=== PATIENT | male | born 1935 | race Caucasian/White ===

== ENCOUNTER 2019-02-22 08:51 | Day surgery (SDC) | payer MEDICARE, OTHER, SELFPAY ==
[2019-01-16 13:48] VITALS: BMI 27.8
--- NOTE | 2019-01-17 03:42 | HP_ITS ---
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 [Ecotrin] 81 mg PO DAILY@0800 11/26/16 [History Confirmed 01/16/19] Folic Acid/Vitamin B Comp W-C [Nephrocaps, Renaphro] 1 cap PO DAILY #30 cap 12/04/16 [Rx Confirmed 01/16/19] amlodipine 5 mg tablet 5 mg PO DAILY 01/16/19 [History Confirmed 01/16/19] atorvastatin 40 mg tablet 40 mg PO DAILY 01/16/19 [History Confirmed 01/16/19] clopidogrel 75 mg tablet 75 mg PO DAILY 01/16/19 [History Confirmed 01/16/19] ferric citrate 210 mg iron tablet 210 mg PO TID 01/16/19 [History Confirmed 01/16/19] [facility] Medical History (Updated 01/16/19 @ 13:52 by Rachel Weston) Anemia (Acute) Anxiety (Acute) History of heart attack (Acute) Hypertension (Chronic) GERD (gastroesophageal reflux disease) (Acute) Hemorrhoids (Acute) Afib (Acute) Arthritis (Acute) CKD (chronic kidney disease) stage V requiring chronic dialysis (Acute) CKD (chronic kidney disease) (Chronic) Surgical History (Updated 01/16/19 @ 13:51 by Rachel Weston) Hx of heart artery stent (Acute) Hx of hernia repair (Acute) History of Mohs micrographic surgery for skin cancer (Acute) Hx of total knee arthroplasty (Acute) Hx of cataract surgery (Acute) Hx of arteriovenostomy for renal dialysis (Acute) Family History Mother Asthma Diabetes Thyroid disorder Father Heart disease Hypertension Social History (Updated 01/17/19 @ 15:42 by Amberly To PA-C) Smoking Status: Former smoker second hand exposure: No alcohol intake: never substance use type: does not use caffeine: Yes what type of physical activity do you participate in: other details: cardiac rehab frequency: 3-4 times per week HPI HPI HPI: YAMILET WILKS, is a 83 M who presents to the office today for HPI HPI Surgical H&P: Yes HPI: YAMILET WILKS, is a 83 M who presents to the office today for post-procedural bleeding. Patient notes for the last several weeks he has had post treatment bleeding for sometimes 18 hours after treatment completed. Patient notes he is able to full complete his treatment. He notes they stopped giving him Heparin prior to treatment which has helped with the oozing following treatment. He does note a very slow ooze and therefore has to leave the bandages on until the following evening. Patient's last intervention was on 03/21/2017. A Left upper extremity fistulogram with 7 x 2 conquest angioplasty was performed. Findings included 70% stenosis of the mid fistula was found. Patient denies pain at the fistula site. He dialyzes on M,W, F. Dr. Lincoln is his senior environmental consultant. Patient also notes recently having a cardiac stent placed in September. 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 ROS General General: Yes fatigue; no weight change, appetite, colon cancer, breast cancer or weakness HEENT HEENT: No difficulty swallowing, eye injury, eye surgery, swollen glands or hoarseness Endo Endocrine: No thyroid disease, diabetes mellitus, thyroid cancer, Hair loss, heat intolerance or cold intolerance Skin Skin: Yes changing moles; no rash Musc Musculoskeletal: Yes arthritis; no back problems, rheumatoid arthritis, gout or joint pain Cardio Cardiovascular: Yes murmur, heart disease, high blood pressure, heart attack and heart stent; no pacemaker, atrial fibrillation, palpitations, shortness of breat with exertion or chest pain Psych Psychiatric: Yes anxiety; no depression or hearing voices Resp Respiratory: No shortness of breath, No sleep apnea, Yes cough, No COPD, No asthma, No emphysema, No wheezing Gastro Gastrointestinal: No abdominal pain, No nausea or vomiting, No diarrhea, No constipation, No blood in stool, Yes acid reflux, Yes hemorrhoids, No ulcers, No gallbladder problem, No black,tarry stools Tanmay Hematologic: Yes blood thinners, No blood disorders, No bleeding, Yes anemia, No blood clots Neuro Neurologic: No system reviewed and no additional complaints, except as docu, No as per HPI, No abnormal walking, No abnormal hearing, No abnormal movements, No abnormal speech, No behavioral changes, No burning sensations, No confusion, No seizure-like activity, No unsteadiness, No dizziness, No localized weakness, No frequent falls, No headache(s), No lack of coordination, No loss of vision, No memory loss, No numbness, No other visual disturbances, No radiating pain, No restless legs, No sensory deficit, No fainting, No tingling, No tremor(s), No weakness, No other Exam Const General: cooperative, healthy appearing, comfortable, no acute distress HENNY Head: normal to inspection Eyes General: appearance normal, both eyes and all related structures Neck Neck: normal visual inspection Neck mass: No Resp Effort & Inspection: normal respiratory effort Cardio Rate: regular rate Rhythm: regular rhythm Heart Sounds: murmur GI Inspection: normal to inspection Palpation: soft Auscultation: normal bowel sounds Skin Other: left upper extremity AV fistula- good pulse, diminished bruit and thrill superior to the top button hole. Neuro General: no focal motor deficits, CN's II-XI intact bilaterally Extrem General: normal to inspection Psych Appearance: grossly normal Affect: normal affect Assessment & Plan Problems 1. Problem with dialysis access, initial encounter T82.396X Plan Dr. Reyes will plan to perform a left upper extremity fistulogram with possible intervention. Procedure details, risks and benefits have been explained to the patient. Patient has had the opportunity to ask and have questions answered. Patient verbally understands and agrees with the plan. Patient to continue on his Plavix. If is of note, Dr. Reyes mentioned on the last fistulogram to possibly consider retrograde access more proximally in the upper arm and to consider an 8 x 2 balloon Coding Level of Care Code Off vis,est,level 4 Diagnoses Problem with dialysis access, initial encounter T82.898A ??Encounter type: initial encounter 01/17/19 1542 <Electronically signed by Amberly keyes PA-C> Date _ Amberly To PA-C I have re-examined the patient. There are no clinical changes since date of exam.
--- NOTE | 2019-02-12 11:11 | EKG12_ITS ---
Test Reason : PRE-OP Blood Pressure : / mmHG Vent. Rate : 081 BPM Atrial Rate : 085 BPM P-R Int : 000 ms QRS Dur : 088 ms QT Int : 380 ms P-R-T Axes : 000 001 074 degrees QTc Int : 441 ms Atrial fibrillation Nonspecific T wave abnormality , probably digitalis effect Abnormal ECG Confirmed by ESTELLA HARTMAN, MARIA ESTHER ([id number]), makeup editor MÓNICA DON ([id number]) on 02/13/2019 11:41:51 AM Referred By: Nael Reyes Confirmed By:MARIA ESTHER SORIA MD
[2019-02-12 11:38] LABS: Hematocrit 41.9 % (40-54); Hemoglobin 12.5 g/dL (13.0-16.5); Mean Corp Hgb Conc 29.8 g/dL (32-36); Mean Corpuscular Hgb 30.8 pg (27.0-32.0); Mean Corpuscular Volume 103.2 fL (80-94); Mean Platelet Vol. 11.3 fl (6.2-12.0); POSITIVE MORPHOLOGY YES; Platelet Count 204 K/mm3 (150-450); RBC Distribution Width CV 18.3 % (11.6-14.6); RBC Distribution Width SD 67.8 fl (35.1-43.9); Red Blood Count 4.06 M/mm3 (4.6-6.2); White Blood Count 8.7 K/mm3 (4.4-11.0)
[2019-02-12 11:42] LABS: Scan Indicated on CBC? Y/N YES- FLAGS NOTED
[2019-02-12 12:16] LABS: Anion Gap 9 (5-15); BUN 57 mg/dL (7-18); BUN/Creat Ratio 5.7 RATIO (10-20); Calcium,Total 8.1 mg/dL (8.5-10.1); Chloride 107 mmol/L (98-107); Creatinine, Serum 9.94 mg/dL (0.70-1.30); EST Glomerular Filtration Rate 5 mL/min (>60); Est Glom Filt Rate - Afr Amer 7 mL/min (>60); Glucose 116 mg/dL (74-106); Potassium 4.3 mmol/L (3.5-5.1); Sodium Level 141 mmol/L (136-145)
[2019-02-22 08:58] VITALS: BMI 28.5
--- NOTE | 2019-02-22 09:54 | PCM.HP.BLA ---
Problem List (1) CKD (chronic kidney disease) stage V requiring chronic dialysis Status: Acute History and Physical Date of Admission: 02/22/19 [facility] Medical Records Department [address] [place] [address] History and Physical MR#: [id number] Acct: [id number] Name: YAMILET WILKS Rep #: [id number] : 1935 83 From: Amberly To PA-C PCP: Tl Dc MD Status: PRE SDC Location: [facility] Intake Vital Signs 02/22/19 Body Mass Index (BMI) 27.8 02/22/19 Height 5 ft 6 in 02/22/19 Weight: 177 lb 02/22/19 Body Mass Index (BMI) 28.5 02/22/19 Blood Pressure 157/74 H 02/22/19 Blood Pressure Location Rt brachial 02/22/19 Respiratory Rate 16 02/22/19 Pulse Rate 58 L 02/22/19 Pulse Source Monitor 02/22/19 Temperature 98.2 F 02/22/19 Pulse Ox 100 02/22/19 Oxygen Delivery Method room air Intake Visit Reasons: Check Fistula 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 [Ecotrin] 81 mg PO DAILY@0800 11/26/16 [History Confirmed 01/16/19] Folic Acid/Vitamin B Comp W-C [Nephrocaps, Renaphro] 1 cap PO DAILY #30 cap 12/04/16 [Rx Confirmed 01/16/19] amlodipine 5 mg tablet 5 mg PO DAILY 01/16/19 [History Confirmed 01/16/19] atorvastatin 40 mg tablet 40 mg PO DAILY 01/16/19 [History Confirmed 01/16/19] clopidogrel 75 mg tablet 75 mg PO DAILY 01/16/19 [History Confirmed 01/16/19] ferric citrate 210 mg iron tablet 210 mg PO TID 01/16/19 [History Confirmed 01/16/19] PFSH Medical History Anemia (Acute) Anxiety (Acute) History of heart attack (Acute) Hypertension (Chronic) GERD (gastroesophageal reflux disease) (Acute) Hemorrhoids (Acute) Afib (Acute) Arthritis (Acute) CKD (chronic kidney disease) stage V requiring chronic dialysis (Acute) CKD (chronic kidney disease) (Chronic) Surgical History Hx of heart artery stent (Acute) Hx of hernia repair (Acute) History of Mohs micrographic surgery for skin cancer (Acute) Hx of total knee arthroplasty (Acute) Hx of cataract surgery (Acute) Hx of arteriovenostomy for renal dialysis (Acute) Family History Mother Asthma Diabetes Thyroid disorder Father Heart disease Hypertension Social History Smoking Status: Former smoker second hand exposure: No alcohol intake: never substance use type: does not use caffeine: Yes what type of physical activity do you participate in: other details: cardiac rehab frequency: 3-4 times per week HPI HPI Surgical H&P: Yes HPI: Patient is an 83 y/o M I am following for chronic renal failure. He presents for an update history and physical for an upcoming surgical procedure. Patient denies recent hospitalizations or illnesses. He is maintained on Plavix which he has continued. Patient denies any previous complications with previous fistulogram. Patient's previous history: YAMILET WILKS, is a 83 M who presents to the office today for post-procedural bleeding. Patient notes for the last several weeks he has had post treatment bleeding for sometimes 18 hours after treatment completed. Patient notes he is able to full complete his treatment. He notes they stopped giving him Heparin prior to treatment which has helped with the oozing following treatment. He does note a very slow ooze and therefore has to leave the bandages on until the following evening. Patient's last intervention was on 03/21/2017. A Left upper extremity fistulogram with 7 x 2 conquest angioplasty was performed. Findings included 70% stenosis of the mid fistula was found. Patient denies pain at the fistula site. He dialyzes on M,W, F. Dr. Lincoln is his rabbler. Patient also notes recently having a cardiac stent placed in September. Dr. Mahoney is his reimbursement consultant. ROS General General: Yes fatigue; no weight change, appetite, colon cancer, breast cancer or weakness HEENT HEENT: No difficulty swallowing, eye injury, eye surgery, swollen glands or hoarseness Endo Endocrine: No thyroid disease, diabetes mellitus, thyroid cancer, Hair loss, heat intolerance or cold intolerance Skin Skin: Yes changing moles; no rash Musc Musculoskeletal: Yes arthritis; no back problems, rheumatoid arthritis, gout or joint pain Cardio Cardiovascular: Yes murmur, heart disease, high blood pressure, heart attack and heart stent; no pacemaker, atrial fibrillation, palpitations, shortness of breat with exertion or chest pain Psych Psychiatric: Yes anxiety; no depression or hearing voices Resp Respiratory: No shortness of breath, No sleep apnea, Yes cough, No COPD, No asthma, No emphysema, No wheezing Gastro Gastrointestinal: No abdominal pain, No nausea or vomiting, No diarrhea, No constipation, No blood in stool, Yes acid reflux, Yes hemorrhoids, No ulcers, No gallbladder problem, No black,tarry stools Tanmay Hematologic: Yes blood thinners, No blood disorders, No bleeding, Yes anemia, No blood clots Neuro Neurologic: No system reviewed and no additional complaints, except as docu, No as per HPI, No abnormal walking, No abnormal hearing, No abnormal movements, No abnormal speech, No behavioral changes, No burning sensations, No confusion, No seizure-like activity, No unsteadiness, No dizziness, No localized weakness, No frequent falls, No headache(s), No lack of coordination, No loss of vision, No memory loss, No numbness, No other visual disturbances, No radiating pain, No restless legs, No sensory deficit, No fainting, No tingling, No tremor(s), No weakness, No other Exam Const General: cooperative, healthy appearing, comfortable, no acute distress [facility] Head: normal to inspection Eyes General: appearance normal, both eyes and all related structures Neck Neck: normal visual inspection Neck mass: No Resp Effort & Inspection: normal respiratory effort Cardio Rate: regular rate Rhythm: regular rhythm Heart Sounds: murmur GI Inspection: normal to inspection Palpation: soft Auscultation: normal bowel sounds Skin Other: left upper extremity AV fistula- good pulse, diminished bruit and thrill superior to the top button hole. Neuro General: no focal motor deficits, CN's II-XI intact bilaterally Extrem General: normal to inspection Psych Appearance: grossly normal Affect: normal affect Assessment & Plan Problems 1. Problem with dialysis access, initial encounter T82.958A Plan Dr. Reyes will plan to perform a left upper extremity fistulogram with possible intervention. Procedure details, risks and benefits have been explained to the patient. Patient has had the opportunity to ask and have questions answered. Patient verbally understands and agrees with the plan. Patient to continue on his Plavix. If is of note, Dr. Reyes mentioned on the last fistulogram to possibly consider retrograde access more proximally in the upper arm and to consider an 8 x 2 balloon. Code Visit Inpatient E&M: 38691 Subs Hosp L1 - No charge
--- NOTE | 2019-02-22 11:41 | OP.PCM_ITS ---
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 84-year-old gentleman was taken to the special procedures lab was placed supine on the table. Versed 1 mg was given as intravenous sedation the left upper extremity was sterilely prepped and draped. Ultrasound was used to identify the transposed basilic vein closer to the brachial artery anastomosis. Under ultrasound guidance 2% lidocaine was instilled. Micropuncture needle inserted. Micropuncture wire inserted. 6 Hungarian short sheath dilator was inserted. Using Isovue contrast fistulogram was taken of the left upper extremity demonstrating mild aneurysmal change of the more proximal portion of the fistula and then just distal to that there is a 3 cm long area of high-grade 85% stenosis. There is then good central venous outflow. An 035 angled Glidewire was placed. An 8 x 20 m [employer]Quest balloon was inserted and after manipulating the ConQuest balloon was able to finally position it to where I could get a center position on the area of high-grade stenosis the balloon was insufflated up to 30 ernst of pressure. 2 distinct separate positionings were performed. Completion fistulogram demonstrated resolution of the high-grade stenosis. While the balloon was up I did a retrograde view as well. There were no apparent complications the balloon was removed U suture of 4-0 nylon was placed with good hemostasis and there was resumption of a palpable thrill. The left upper extremity fistula gram demonstrates a transposed basilic vein to brachial artery AV fistula. 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 The remainder of the more distal upper arm fistula demonstrates excellent venous outflow. There is widely patent arterial anastomosis and widely patent inflow to the fistula. Subsequent to the angioplasty there is complete resolution of the area of high-grade venous stenosis. Specimens none. Drains none. Blood loss minimal. Nael Reyes M.D., F.A.C.S. Type of Anesthesia:: IV Sedation, Local
== END 2019-02-22 12:45 | disposition home or self-care (01) ==
LOC: CLSP 08:52
PROVIDERS: Family Provider Family Medicine; PCP Family Medicine; Referring Provider Surgery; Visit Provider Surgery
DX: T82.858A Stenosis of other vascular prosthetic devices, implants and grafts, initial encounter (principal); I12.9 Hypertensive chronic kidney disease with stage 1 through stage 4 chronic kidney disease, or unspecified chronic kidney disease; N18.3 Chronic kidney disease, stage 3 (moderate); Z99.2 Dependence on renal dialysis; D64.9 Anemia, unspecified; I25.2 Old myocardial infarction; K21.9 Gastro-esophageal reflux disease without esophagitis; I48.91 Unspecified atrial fibrillation; M19.90 Unspecified osteoarthritis, unspecified site; Z95.5 Presence of coronary angioplasty implant and graft; Z79.82 Long term (current) use of aspirin; Z79.02 Long term (current) use of antithrombotics/antiplatelets; Z79.899 Other long term (current) drug therapy; Z87.891 Personal history of nicotine dependence
CPT/HCPCS: 36415; 36902; 76937; 80048; 85027; 93005; 99152; 99153; Q9967; A4216; C1725; C1769

== ENCOUNTER → 2020-01-17 09:41 | Outpatient (CLI) | payer MEDICARE, OTHER, SELFPAY ==
[2020-01-17 09:10] VITALS: BMI 29.0
[2020-01-17 10:18] LABS: Absolute Lymphocyte Count 1.39 X10^3/uL (0.83-4.51); Absolute Neutrophil Count 4.1 X10^3/uL (2.0-7.7); Basophil# 0.06 X10^3/uL; Basophil% 0.7 % (0-1); Eosinophil# 1.95 X10^3/uL; Eosinophils% 23.5 % (0-5); Hematocrit 33.6 % (40-54); Hemoglobin 10.4 g/dL (13.0-16.5); Lymphocyte # 1.39 X10^3/ul (4.0); Lymphocyte % 16.7 % (19-41); Mean Corpuscular Hgb 31.2 pg (27.0-32.0); Mean Corpuscular Volume 100.9 fL (80-94); Mean Platelet Vol. 11.5 fl (6.2-12.0); Monocyte# 0.76 X10^3/uL; Monocyte% 9.2 % (0-10); NRBC Flagged by Analyzer 0 % (0-5); Neutrophil # 4.12 X10^3/uL (2.7-7.7); Neutrophil % 49.7 % (47-70); Platelet Count 142 K/mm3 (150-450); RBC Distribution Width CV 14.7 % (11.6-14.6); RBC Distribution Width SD 54.3 fl (35.1-43.9); Red Blood Count 3.33 M/mm3 (4.6-6.2); White Blood Count 8.3 K/mm3 (4.4-11.0)
[2020-01-17 10:35] LABS: Anion Gap 6 (5-15); BUN 29 mg/dL (7-18); BUN/Creat Ratio 4.1 RATIO (10-20); Calcium,Total 7.7 mg/dL (8.5-10.1); Chloride 105 mmol/L (98-107); Creatinine, Serum 7.01 mg/dL (0.70-1.30); EST Glomerular Filtration Rate 8 mL/min (>60); Est Glom Filt Rate - Afr Amer 10 mL/min (>60); Glucose 96 mg/dL (74-106); Potassium 3.8 mmol/L (3.5-5.1); Sodium Level 138 mmol/L (136-145)
== END ==
PROVIDERS: PCP Family Medicine; Referring Provider Surgery; Visit Provider Surgery
DX: T82.898A Other specified complication of vascular prosthetic devices, implants and grafts, initial encounter (principal)
CPT/HCPCS: 36415; 80048; 85025

== ENCOUNTER 2020-01-24 09:01 | Day surgery (SDC) | payer MEDICARE, OTHER, SELFPAY ==
[2020-01-17 09:10] VITALS: BMI 29.0
[2020-01-21 08:55] VITALS: BMI 29.0
--- NOTE | 2020-01-24 10:38 | PCM.HP.BLA ---
Problem List (1) Problem with dialysis access Status: Acute Qualifiers: History and Physical Date of Admission: 01/24/20 Assessment & Plan Problems 1. Problem with dialysis access, initial encounter T82.898A Plan - Dr. Nael Reyes MD 84-year-old gentleman. He has slowly diminishing flow in the left upper extremity transposed basilic vein to brachial artery AV fistula. 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 I would like to obtain records from his intervention that he had in [place]. I recommend to him a left extremity fistulogram. We would access closer to the arterial anastomosis antegrade with flow anticipating venous outflow problems. I anticipate endovascular intervention with angioplasty possible Cut[place] Balloon angioplasty possible stent placement. He has had an opportunity to ask and have questions answered. We will schedule and proceed as noted. Copy: Dr. Salazar Reyes MItzel., F.A.C.S. Orders Orders: Basic Metabolic Profile (BMP) Today T82.898A CBC W/Diff, Automated Today T82.898A 01/17/20 1507 <Electronically signed by Nael Reyes MD> Date Nael Reyes MD cc: Dr. Amrik Lincoln MD ~* Signed Intake Vital Signs 01/17/20 Height 5 ft 6 in 01/17/20 Weight: 180 lb 01/17/20 BP 122/61 H 01/17/20 Blood Pressure Location Rt brachial 01/17/20 Position Sitting 01/17/20 Respiration 18 01/17/20 Pulse 62 01/17/20 Pulse Source Monitor 01/17/20 Temp 97.5 F L 01/17/20 Temp Source Temporal 01/17/20 Pulse Oximetry (%) 98 01/17/20 Oxygen Delivery Method room air 01/17/20 BMI 28.5 Intake Visit Reasons: DECREASE ACCESS FLOW Chief Complaint: check fistula/decreased access flows [employer] Required: No Is patient in pain?: No Allergies ether Allergy (Verified 01/17/20 09:11) Nausea Medications I-Cap 1 tab PO DAILY 10/27/16 [History Confirmed 01/17/20] Lansoprazole [Prevacid] 30 mg PO DAILY PRN PRN 10/27/16 [History Confirmed 01/17/20] Metoprolol Tartrate [Lopressor (beta tenzin)] 25 mg PO BID 10/27/16 [History Confirmed 01/17/20] Aspirin E.C. [Ecotrin] 81 mg PO DAILY@0800 11/26/16 [History Confirmed 01/17/20] Folic Acid/Vitamin B Comp W-C [Nephrocaps, Renaphro] 1 cap PO DAILY #30 cap 12/04/16 [Rx Confirmed 01/17/20] amlodipine 5 mg tablet 5 mg PO DAILY 01/16/19 [History Confirmed 01/17/20] atorvastatin 40 mg tablet 40 mg PO DAILY 01/16/19 [History Confirmed 01/17/20] clopidogrel 75 mg tablet 75 mg PO DAILY 01/16/19 [History Confirmed 01/17/20] ferric citrate 210 mg iron tablet 210 mg PO TID 01/16/19 [History Confirmed 01/17/20] PFSH Medical History Anemia (Acute) Anxiety (Acute) History of heart attack (Acute) Hypertension (Chronic) GERD (gastroesophageal reflux disease) (Acute) Hemorrhoids (Acute) Afib (Acute) Arthritis (Acute) CKD (chronic kidney disease) stage V requiring chronic dialysis (Acute) CKD (chronic kidney disease) (Chronic) Surgical History Hx of heart artery stent (Acute) Hx of hernia repair (Acute) History of Mohs micrographic surgery for skin cancer (Acute) Hx of total knee arthroplasty (Acute) Hx of cataract surgery (Acute) Hx of arteriovenostomy for renal dialysis (Acute) Family History Mother Asthma Diabetes Thyroid disorder Father Heart disease Hypertension Social History (Updated 01/17/20 @ 10:[address] Nael Reyes MD) Smoking Status: Former smoker second hand exposure: No alcohol intake: never substance use type: does not use caffeine: Yes what type of physical activity do you participate in: other details: cardiac rehab frequency: 3-4 times per week HPI HPI HPI: YAMILET WILKS, is a 84 M who presents to the office today for surgical consultation regarding diminished flows left upper extremity transposed basilic vein to brachial artery AV fistula. I intervened with him as noted below. The patient states that July 2019 he also had an intervention performed in [place] with angioplasty of his left upper arm AV fistula. 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 Surgery/Procedure Performed:: Left upper extremity fistulogram with 8 x 20 mm [employer] angioplasty HPI HPI HPI: YAMILET WILKS, is a 84 M who presents to the office today for ROS General General: Yes fatigue; no weight change, appetite, colon cancer, breast cancer or weakness HEENT HEENT: No difficulty swallowing, eye injury, eye surgery, swollen glands or hoarseness Endo Endocrine: No thyroid disease, diabetes mellitus, thyroid cancer, Hair loss, heat intolerance or cold intolerance Skin Skin: Yes rash and changing moles Breast Breast: No left breast lump, right breast lump, nipple discharge, breast pain, abnormal mammogram, abnormal US or breast enlargement Musc Musculoskeletal: Yes rheumatoid arthritis; no back problems, arthritis, gout or joint pain Cardio Cardiovascular: Yes murmur, atrial fibrillation, heart attack and heart stent; no pacemaker, heart disease, high blood pressure, palpitations, shortness of breat with exertion or chest pain Psych Psychiatric: No depression, anxiety or hearing voices Resp Respiratory: Yes shortness of breath, No sleep apnea, No cough, No COPD, No asthma, No emphysema, No wheezing Gastro Gastrointestinal: No abdominal pain, Yes nausea or vomiting, No diarrhea, No constipation, No blood in stool, Yes acid reflux, Yes hemorrhoids, No ulcers, No gallbladder problem, No black,tarry stools Tanmay Hematologic: Yes blood thinners, No blood disorders, No bleeding, No anemia, No blood clots Neuro Neurologic: No system reviewed and no additional complaints, except as docu, No as per HPI, No abnormal walking, No abnormal hearing, No abnormal movements, No abnormal speech, No behavioral changes, No burning sensations, No confusion, No seizure-like activity, No unsteadiness, No dizziness, No localized weakness, No frequent falls, No headache(s), No lack of coordination, No loss of vision, No memory loss, Yes numbness, No other visual disturbances, No radiating pain, No restless legs, No sensory deficit, No fainting, Yes tingling, No tremor(s), No weakness, No other Exam Const General: cooperative, comfortable, no acute distress HENMT Head: normal to inspection Chest Breast Palpation: No nipple discharge Resp Effort & Inspection: normal respiratory effort Auscultation: clear to auscultation bilaterally Cardio Rate: regular rate Rhythm: regular rhythm Heart Sounds: murmur GI Inspection: normal to inspection Palpation: soft Skin Other: Scattered areas of superficial skin injury bilateral upper arms Neuro Cognition: normal cognition Extrem Other: Left upper arm transposed basilic vein to brachial artery AV fistula with pulse and thrill and bruit. On ultrasound inspection in the more distal portion of the fistula where the basilic vein angles back toward its normal anatomic position there appears to be approximately 50% narrowing. Psych Affect: normal affect Assessment & Plan Problems 1. Problem with dialysis access, initial encounter T82.898A Plan 84-year-old gentleman. He has slowly diminishing flow in the left upper extremity transposed basilic vein to brachial artery AV fistula. 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 I would like to obtain records from his intervention that he had in [place]. I recommend to him a left extremity fistulogram. We would access closer to the arterial anastomosis antegrade with flow anticipating venous outflow problems. I anticipate endovascular intervention with angioplasty possible [place] Balloon angioplasty possible stent placement. He has had an opportunity to ask and have questions answered. We will schedule and proceed as noted. Copy: Dr. Salazar Reyes M.D., F.A.C.S. Orders Orders: Basic Metabolic Profile (BMP) Today T82.898A CBC W/Diff, Automated Today T82.898A Coding Level of Care Code Off vis,est,level 2 Diagnoses Problem with dialysis access, initial encounter T82.898A ??Encounter type: initial encounter I have re-examined the patient. There are no clinical changes since date of exam. Procedure Criteria Procedure Type: Elective COVID Risk Discussion: The surgeon/proceduralist and patient have discussed in detail the risk of exposure to and/or potential harm posed by the COVID-19 virus with having a surgery/procedure at this time versus the risk of delaying the surgery/procedure. It is not possible to know either the risk of delaying the surgery or procedure or chance of getting an infection with perfect accuracy, but a joint decision was made between the patient and the surgeon/proceduralist to proceed at this time with the scheduled surgery/procedure as indicated on the consent form.
--- NOTE | 2020-01-24 11:31 | PCM.OPRPT ---
Problem List (1) Problem with dialysis access Status: Acute Qualifiers: Report of Operation Date of Procedure: 01/24/20 Pre-Operative Diagnosis: Diminished flow left upper extremity transposed basilic vein to brachial artery arteriovenous hemodialysis fistula with increased bleeding Post-Operative Diagnosis: High-grade venous stenosis outflow portion left upper arm transposed basilic vein to brachial artery AV fistula Surgery/Procedure Performed:: Left upper extremity fistulogram with 8 x 2 [place] angioplasty Description of Surgical Findings:: 85-year-old gentleman was taken to the special procedures lab placed on the table. He received a milligram of Versed intravenously. Timeout and informed consent had been obtained. The left extremity was sterilely prepped draped. Ultrasound was used to identify the transposed basilic vein closer to the brachial artery anastomosis. 2% lidocaine was instilled under ultrasound guidance. Micropuncture needle inserted. Micropuncture wire inserted. 6 [place] short sheath was inserted. Using Isovue contrast a fistulogram was obtained this demonstrated the transposed basilic vein to brachial artery AV fistula. At the curvature of the basilic vein back into its [place] position and the more outflow portion of the fistula that there was evidence of stenosis. There is some aneurysmal change as well and at the site of the aneurysmal change there appeared to be a high-grade area of stenosis. So I then placed a 7 [place] sheath. I placed an SV 5 wire. I was able to place an 8 x 2 [place] and several different insufflations at this outflow portion of the vein was performed. Follow-up imaging now demonstrated dramatic improvement. Retrograde views were obtained demonstrating good inflow. Completion views demonstrated excellent central venous outflow. Sheath was removed U suture of 4-0 nylon was placed there was an excellent pulse thrill and bruit at the completion. Blood loss minimal no apparent complication Images demonstrate a transposed left extremity basilic vein to brachial artery AV fistula. The arterial anastomosis is widely patent the proximal portion of the fistula widely patent there is aneurysmal change of the midportion and at the very distal part of that aneurysmal change there appears to be a 3 cm long area of a relatively narrowed vein. It appeared to me that the area of greatest stenosis was immediately adjacent to the aneurysmal portion of vein. That was resolved status post Cutting Balloon angioplasty. There was excellent central venous outflow. Nael Reyes M.D., F.A.C.S. Type of Anesthesia:: IV Sedation, Local
== END 2020-01-24 12:40 | disposition home or self-care (01) ==
LOC: CLSP 09:02
PROVIDERS: PCP Family Medicine; Referring Provider Surgery; Visit Provider Surgery
DX: T82.858A Stenosis of other vascular prosthetic devices, implants and grafts, initial encounter (principal); I12.0 Hypertensive chronic kidney disease with stage 5 chronic kidney disease or end stage renal disease; N18.6 End stage renal disease; Z99.2 Dependence on renal dialysis; F41.9 Anxiety disorder, unspecified; I25.2 Old myocardial infarction; K21.9 Gastro-esophageal reflux disease without esophagitis; I48.91 Unspecified atrial fibrillation; M19.90 Unspecified osteoarthritis, unspecified site; Z86.2 Personal history of diseases of the blood and blood-forming organs and certain disorders involving the immune mechanism; Z95.5 Presence of coronary angioplasty implant and graft; Z79.82 Long term (current) use of aspirin; Z79.02 Long term (current) use of antithrombotics/antiplatelets; Z79.899 Other long term (current) drug therapy; Z87.891 Personal history of nicotine dependence
CPT/HCPCS: 36902; 76937; 99152; 99153; Q9967; C1725; C1769; C1894